=== PATIENT | male | born 1980 | race Caucasian/White ===

== ENCOUNTER 2024-03-18 08:29 | Emergency (ER) | payer SELFPAY ==
[2024-03-18 08:31] VITALS: BP 138/104
[2024-03-18] MEDS: ATIVAN 1 MG IV ×2 (09:07→12:17)
--- NOTE | 2024-03-18 09:19 | ED.GENMED ---
History of Present Illness
General
Chief Complaint: Withdrawal Symptoms
Source: patient
Exam Limitations: none
Time Seen by Provider: 03/18/24 08:46
Nursing documentation reviewed up to this point in time: agreed with
History of Present Illness
History of Present Illness:
43-year-old male history of alcoholism had been in rehab through [facility] had been living in a clean living home, relapsed 4 to 5 days ago was with a 3 to 4-day moser couple pints of whiskey a day no alcohol for almost 24 hours, presents
with anxiety nausea vomiting ana went to work today, told his boss that he relapsed brought to the ER, been vomiting, no other drug abuse, he has 2 children, he is , he is employed, non-smoker, does have asthma
Past History
Past History
ED Past Medical History: Asthma and Other (Alcoholism)
Social History
Tobacco: Non-smoker
Alcohol: Binge drinker
Drug: None
Personal:
Living: other (Clean living)
Employment: Employed
Review of Systems
Review of Systems
All Other Systems: Not applicable
EENT: Reports no symptoms
Respiratory: Reports no symptoms
ABD/GI: Reports nausea and vomiting
: Reports no symptoms
Musculoskeletal: Reports no symptoms
Skin: Reports no symptoms
Psychiatric: Reports anxiety
Phy Exam
Physical Exam
Physical Exam:
Physical Exam
General: Cooperative anxious slightly tremulous male
Neck: Lips are dry
Heart: Tachycardic
Lungs: no acute respiratory distress. clear bilaterally
Neuro: alert and oriented. no focal neurological deficits slightly tremulous
Skin: no rash
Psychiatric: Cooperative anxious
Extremities: no edema
Scores
Withdrawal Assessment of Alcohol
Withdrawal Assessment Completed?: Yes
Nausea and Vomiting: Intermittent nausea with dry heaves
Tactile Disturbances: Very mild itching, pins and needles, burning or numbness
Tremor: Moderate, with patient's arms extended
Auditory Disturbances: Not present
Paroxysmal Sweats: No sweat visible
Visual Disturbances: Not present
Anxiety: Mild anxiety
Headache, Fullness in Head: Very mild
Agitation: Normal activity
Orientation and clouding of sensorium: Oriented and can do serial additions
Total CIWA Score: 11
Alcohol Withdrawal Medication Recommendation: Equal to MSAS Score 5-7. Lorazepam 1mg IV or PO NOW & re-assess q2hrs
Course
Orders/Labs/Results
Orders:
Orders
03/18/24 08:56
ECG [Electrocardiogram (*1)] Urgent
Reason for Study: Tachycardia
EKG- Treatment ONCE
03/18/24 09:01
Add On- LAB Urgent
Tests Added?: magnesium
Lorazepam [Ativan] 1 mg IV NOW STA
03/18/24 09:02
Alcohol Urgent
Complete Blood Count/With Diff Urgent
Comprehensive Metabolic Panel Urgent
Magnesium Urgent
Comment: ADD ON
PT/INR [Prothrombin Time] Urgent
PTT Urgent
03/18/24 09:05
Warm Handoff Consult ONCE
Patient agreeable to Warm Hand off: Yes
Call made to [phone]: Spoke with CRS
03/18/24 09:13
0.9% Sodium Chloride 1000 ml [Nss] 1,000 ml Mvi, Adult [Multivitamin] 10 ml Thiamine Injection 100 mg Magnesium Sulfate 2 grams IV 500 mls/hr
03/18/24 12:12
Lorazepam [Ativan] 1 mg IV NOW STA
Abnormal Lab Results
03/18/24
09:02
PT 16.1 H Sec
(11.4-14.6)
Chloride 93 L mmol/L
(98-107)
BUN 21 H mg/dl
(9-20)
Glucose 139 H mg/dl
(70-99)
Total Bilirubin 4.2 H mg/dl
(0.2-1.3)
AST 85 H U/L
(17-59)
ALT 60 H U/L
(0-50)
03/18/24 09:02
03/18/24 09:02
Vital Signs
Initial and Last Documented VS:
Initial Vital Signs
Temp Pulse Resp BP Pulse Ox
98.0 F 122 22 138/104 96
03/18/24 08:31 03/18/24 08:31 03/18/24 08:31 03/18/24 08:31 03/18/24 08:31
Last Documented Vital Signs
Temp Pulse Resp BP Pulse Ox
98.0 F 103 20 137/74 99
03/18/24 08:31 03/18/24 12:55 03/18/24 12:55 03/18/24 12:55 03/18/24 12:55
MDM/Problems Addressed
Differential Diagnosis Includes:
Alcohol withdrawal, anxiety, dehydration electrolyte abnormality impending DTs,
MDM/Problems Addressed:
Alcohol withdrawal
Chronic conditions affecting care:
Alcoholism
*Pulse Oximetry
Patient hypoxic: no
*EKG
Interpreted by ED Provider?: Yes
Interpretation: abnormal
Comparison EKG: no comparison EKG present
Heart Rate: 118
Rate: tachycardiac
Rhythm: sinus
Ischemia: non-specific ST changes
*Hand Paint [employer]er Interpretation
Rate: tachycardiac
Interpretation: abnormal
Heart Rate: 118
Rhythm: sinus
*Critical Care Note
Total Time (30-74mins, 75-104mins- exclusive of procedures): Not Applicable
Update Note
Update Note:
Will hydrate check electrolytes including magnesium benzodiazepine, follow clinical response warm handoff has been consulted
1:15 PM update patient remained stable reviewed with the cares patient offered inpatient rehab he is refused apparently can go back to his clean living facility
ED Attending Note
-
Portions of this chart may have been created with voice recognition software.� Occasional wrong word or��sound alike� substitutions may have occurred due to the inherent limitations of voice recognition software.
Discharge Plan
Departure
Patient Disposition: Home (Routine Discharge)
Date of Disposition: 03/18/24
Time of Disposition: 13:27
Patient with high blood pressure during this ER visit?: No
Condition: Good
Discharge Problem:
Alcoholism in recovery
Instructions: Alcohol Use Disorder (DC), Alcohol Withdrawal (DC), Anxiety, Adult (DC)
Referrals:
UNKNOWN - PT DOES,NOT KNOW [Family Provider] -
Interventions
Interventions:
*Risk Screen - Suicide Last Done: 03/18/24 08:31
*General Assessment Last Done: 03/18/24 08:31
*Neglect/Abuse Screening Last Done: 03/18/24 08:31
ED- Fall Risk Assessment Last Done: 03/18/24 11:48
ED- Neurological Assessment Last Done: 03/18/24 08:56
ED-Psychological Assessment Last Done: 03/18/24 08:56
Discharge Date and Time
Print Language: BELGIAN
[2024-03-18 09:39] LABS: ALT (SGPT) 60 U/L (0-50); AST (SGOT) 85 U/L (17-59); Albumin 4.7 g/dl (3.5-5.0); Alcohol 15 mg/dl; Alkaline Phosphatase 86 U/L (38-126); Blood Urea Nitrogen 21 mg/dl (9-20); Calcium 8.9 mg/dl (8.4-10.2); Carbon Dioxide 24 mmol/L (22-30); Chloride 93 mmol/L (98-107); Glucose 139 mg/dl (70-99); Magnesium 1.6 mg/dl (1.6-2.3); Potassium 3.8 mmol/L (3.5-5.1); Sodium 136 mmol/L (135-145); Total Bilirubin 4.2 mg/dl (0.2-1.3); Total Protein 6.9 g/dl (6.3-8.2); eGFR > 60.00
[2024-03-18 09:41] LABS: APTT 24.9 Sec (23.4-35.0); INR 1.31; PT 16.1 Sec (11.4-14.6)
[2024-03-18 09:50] VITALS: BP 159/110
[2024-03-18] MEDS: MULTIVITAMIN 1015 MG IV (09:51)
[2024-03-18] MEDS: MULTIVITAMIN 1015 GRAMS IV (09:51)
[2024-03-18] MEDS: MULTIVITAMIN 1015 ML IV (09:51)
[2024-03-18 09:53] LABS: % Basophils 1.1 % (0-2); % Eosinophils 0.5 % (0-6); % Immature Granulocytes 0.3 % (0-0.5); % Lymphocytes 29.7 % (20.5-51.1); % Monocytes 7.2 % (1.7-9.3); % Neutrophils 61.2 % (42.2-75.2); Absolute Basophils 0.1 10^3/uL (0-0.2); Absolute Lymphocytes 2.2 10^3/uL (1.2-3.4); Absolute Monocytes 0.5 10^3/uL (0.1-0.6); Absolute Neutrophils 4.5 10^3/uL (1.4-6.5); Hematocrit 47.4 % (39.0-52.0); Hemoglobin 17.5 g/dL (13.0-18.0); Mean Corp Hgb Conc. 36.9 g/dL (33.0-37.0); Mean Corpuscular Hgb 29.8 pg (27.0-31.0); Mean Corpuscular Volume 80.6 fL (80.0-94.0); Mean Platelet Volume 9.8 fL (7.4-10.4); Nucleated Red Blood Cells % 0 % (-); Platelet Count 223 10^3/uL (130-400); Red Blood Cell Count 5.88 10^6/uL (4.70-6.10); Red Cell Dist. Width 12.3 % (11.5-14.5); White Blood Cell Count 7.3 10^3/uL (4.8-10.8)
[2024-03-18 12:55] VITALS: BP 137/74
[2024-03-18 14:11] VITALS: BP 156/74
== END 2024-03-18 14:17 | disposition home or self-care (01) ==
LOC: EMR 08:29
PROVIDERS: EMERGENCY PHYSICIAN Emergency Medicine
DX: F10.21 Alcohol dependence, in remission (principal)
CPT/HCPCS: 99284; 96365; 96366; 96375; 96376; 80053; 82077; 83735; 85025; 85610; 85730; 93005